=== PATIENT | female | born 1990 | race African-American/Black ===

== ENCOUNTER 2017-03-11 16:36 | Emergency (ER) | payer OTHER ==
[~2017-03-11] VITALS: Ht 160 cm; Wt 81.2 kg
--- NOTE | 2017-03-11 17:04 | Emergency Room Report ---
History of Present Illness General Chief Complaint: Chest Pain Source: Patient Present Illness HPI The patient is a 26-year-old female who denies any medical history presenting for chest pain. The patient states that she developed these symptoms for months prior and went to an urgent care and was diagnosed with pleuritis but no imaging , EKG, or blood work was done. She was given a prescription which she does not remember but she states she did not take them as directed. The pt now states she experiences intermittent 8/10 dull pain the upper chest on both sides. Pain occurs randomly and for no known reason. Pain does not radiate. No known relieving factors. Pt denies recent illness. She denies any other symptoms including N, V, F, chills, cough, SOB, palpitations, numbness/tingling, arm pain , abd pain, JOHNSON, dizziness Allergies: Coded Allergies: No Known Allergies (Unverified , 03/11/17) Patient History Past Medical History: see triage record Pertinent Family History: none Reviewed Nursing Documentation: PMH: Agreed, PSxH: Agreed Nursing Documentation-PMH Past Medical History: No Stated History Review of Systems All Other Systems: negative except mentioned in HPI Physical Exam Vital Signs Date Time Temp Pulse Resp B/P Pulse Ox O2 Delivery O2 Flow Rate FiO2 03/11/17 16:39 98.4 93 20 105/69 100 Room Air Sp02 EP Interpretation: reviewed, normal General Appearance: no apparent distress, alert, GCS 15, non-toxic Head: normocephalic, atraumatic Eyes: bilateral eye PERRL, bilateral eye normal inspection ENT: hearing grossly normal, normal pharynx, no angioedema, normal voice Neck: full range of motion, supple/symm/no masses Respiratory: chest non-tender, lungs clear, normal breath sounds, no respiratory distress, no accessory muscle use, no wheezing, speaking full sentences Cardiovascular #1: regular rate, rhythm, no edema, no murmur, no rub Gastrointestinal: normal bowel sounds, non tender, soft, non-distended, no guarding, no rebound Musculoskeletal: back normal, gait/station normal, normal range of motion, non- tender Neurologic: alert, oriented x3, responsive, motor strength/tone normal, sensory intact, speech normal Psychiatric: judgement/insight normal, memory normal, mood/affect normal, no suicidal/homicidal ideation Skin: normal color, no rash, warm/dry, well hydrated Lymphatic: no adenopathy Medical Decision Making PA Attestation Dr. Limon is my supervising physician. Patient management was discussed with my supervising physician Diagnostic Impression: Primary Impression: Chest pain Qualified Codes: R07.9 - Chest pain, unspecified ER Course The patient is a 26-year-old female who denies any medical history presenting for chest pain Differential diagnosis include but not limited to ACS, pericarditis, pleuritis, PE, pneumonia, gastritis PE:vitals WNL. NAD RRR. No MRG. Lungs CTA bilat. Chest non tender. EKG unremarkable. No ST elevation CXR unremarkable. The patient will be discharged home with a prescription for Motrin and will follow up with PMD. ER precautions are given Laboratory Tests Test 03/11/17 17:03 Urine HCG, Qualitative Negative Lab Results Impression Preg: neg EKG Diagnostic Results EP Interpretation: NSR Rate: tachycardiac - 96 Rhythm: NSR ST Segments: no acute changes ASA given to the pt in ED: No PA Scribe Text EKG was reviewed and read with my supervising physician. No acute ST segment changes are seen. Normal rhythm. No acute changes. Chest X-Ray Diagnostic Results EP Interpretation: Yes Findings: no consolidation, no effusion, no pneumothorax Number of Views: 1 PA Scribe Text I am acting as scribe for my supervising physician. My supervising physician's interpretation of the chest xrays are there is no consolidation, no effusion, no acute cardiopulmonary disease, no pneumothorax Last Vital Signs Date Time Temp Pulse Resp B/P Pulse Ox O2 Delivery O2 Flow Rate FiO2 03/11/17 16:58 16 Room Air 03/11/17 16:39 98.4 93 105/69 100 Status: improved Disposition: HOME, SELF-CARE Condition: Improved Scripts Ibuprofen* (MOTRIN*) 600 Mg Tablet 600 MG ORAL Q8H Y for For Pain, #30 TAB 0 Refills Prov: PRABHJOT MAR 03/11/17 PRABHJOT MAR Mar 11, 2017 17:04
[2017-03-11] MEDS ORDERED: IBUPROFEN600 MG ORAL (17:39)
[2017-03-11 17:53] VITALS: BP 108/72
[2017-03-11 17:54] VITALS: BP 105/69
--- NOTE | 2017-03-12 09:33 | Diagnostic Imaging Report ---
Indication: PAIN Technique: One view of the chest Comparison: none Findings: Lungs and pleural spaces are clear. Heart size is normal. Impression: No acute process
== END 2017-03-11 17:55 | disposition home or self-care (01) ==
LOC: EMR 17:10
DX: R07.9 Chest pain, unspecified (principal)
CPT/HCPCS: 71010; 81025; 93005; 99283

== ENCOUNTER 2017-11-04 05:59 | Emergency (ER) | payer OTHER ==
[~2017-11-04] VITALS: Ht 160 cm; Wt 85.7 kg
[~2017-11-04 05:59] MED LIST: IBUPROFEN600 MG ORAL
[2017-11-04 06:29] VITALS: BP 104/73
--- NOTE | 2017-11-04 06:43 | Emergency Room Report ---
History of Present Illness General Chief Complaint: Allergic Reaction Source: Patient Present Illness HPI 27-year-old female, history of allergies however does not know to what. Presents with hives, shortness of breath, nausea and vomiting. Patient states that this occurred at 1 AM, very itchy, rash on arms legs and abdomen. Slight shortness of breath. No tongue lip or throat swelling. One episode of vomiting no diarrhea Allergies: Coded Allergies: No Known Allergies (Unverified , 03/11/17) Patient History Past Medical History: see triage record Past Surgical History: none Pertinent Family History: none Last Menstrual Period: 05/2017 Reviewed Nursing Documentation: PMH: Agreed, PSxH: Agreed Nursing Documentation-PMH Past Medical History: No Stated History Review of Systems All Other Systems: negative except mentioned in HPI Physical Exam Vital Signs Date Time Temp Pulse Resp B/P (MAP) Pulse Ox O2 Delivery O2 Flow Rate FiO2 11/04/17 06:00 99.3 140 20 97/64 96 Room Air Sp02 EP Interpretation: reviewed, normal General Appearance: alert, GCS 15, non-toxic, mild distress Head: normocephalic, atraumatic Eyes: bilateral eye normal inspection, bilateral eye PERRL, bilateral eye EOMI ENT: normal ENT inspection, normal pharynx, no angioedema, normal voice, moist mucus membranes Neck: normal inspection, full range of motion, supple Respiratory: normal inspection, lungs clear, normal breath sounds, no respiratory distress, no retraction, no wheezing, speaking full sentences, chest symmetrical Cardiovascular #1: no edema, normal capillary refill, tachycardia Cardiovascular #2: 2+ radial (R), 2+ radial (L) Gastrointestinal: normal inspection, non tender, soft, non-distended, no guarding Musculoskeletal: normal inspection, back normal, normal range of motion, non- tender Neurologic: normal inspection, alert, oriented x3, responsive, motor strength/ tone normal, sensory intact, normal gait, speech normal Psychiatric: normal inspection, judgement/insight normal, memory normal Skin: warm/dry, well hydrated, normal turgor, other - diffuse urticarial rash noted on arms abdomen and legs blanching nontender Medical Decision Making ER Course 27-year-old female with allergic reaction Differential diagnosis Anaphylaxis Plan: Benadryl already taken by patient 50 mg, pepcid, steroids Epinephrine, fluids ER course: The patient continues to be a monitor, patent airway, not hypoxic, no wheezing Signed out patient to Dr. Jiménez 27-year-old female with anaphylaxis, given Ep, Pepcid, steroids, fluids Pending resolution of symptoms Last Vital Signs Date Time Temp Pulse Resp B/P (MAP) Pulse Ox O2 Delivery O2 Flow Rate FiO2 11/04/17 06:29 99.3 102 17 104/73 98 Room Air Referrals: [facility],REFERRING (PCP) Jose Francisco Latham M.D. Nov 04, 2017 06:43
[2017-11-04] MEDS: Solu-MEDROL 125mg Inj IVP ONE (06:53)
[2017-11-04] MEDS: EPINEPHrine 1mg/1ml Amp IM ONE (06:53)
[2017-11-04 07:16] LABS: KETONES,URINE NEGATIVE (NEGATIVE); LEUKOCYTE ESTERASE ,URINE 2+ (NEGATIVE); NITRITE,URINE NEGATIVE (NEGATIVE); PH,URINE 6 (4.5-8.0); PROTEIN,URINE 2+ (NEGATIVE); UROBILINOGEN,URINE NORMAL MG/DL (0.0-1.0)
[2017-11-04 07:20] LABS: BASOPHILS % (AUTO) 0.4 % (0.0-2.0); LYMPHOCYTES % (AUTO) 13.5 % (20.0-45.0); MEAN CORPUSCULAR HEMOGLOBIN 30.4 PG (27.0-31.0); MEAN CORPUSCULAR HGB CONC 34.6 G/DL (32.0-36.0); MEAN CORPUSCULAR VOLUME 88 FL (80-99); MEAN PLATELET VOLUME 9.5 FL (6.5-10.1); MONOCYTES % (AUTO) 4.3 % (1.0-10.0); NEUTROPHILS % (AUTO) 81.7 % (45.0-75.0); PLATELET COUNT 275 K/UL (150-450); RED BLOOD COUNT 5.04 M/UL (4.20-5.40); RED CELL DISTRIBUTION WIDTH 11.4 % (11.6-14.8); WHITE BLOOD COUNT 12.2 K/UL (4.8-10.8)
[2017-11-04 07:22] LABS: APPEARANCE,URINE SLIGHTLY CLOUDY
[2017-11-04 07:29] LABS: ANION GAP 9 mmol/L (5-15); CARBON DIOXIDE 25 MMOL/L (21-32); CHLORIDE 102 MMOL/L (98-107); CREATININE 0.9 MG/DL (0.55-1.30); GLOMERULAR FILTRATION RATE > 60 mL/min (>60); POTASSIUM 3.7 MMOL/L (3.5-5.1); SODIUM 136 MMOL/L (136-145)
[2017-11-04 07:33] LABS: ALANINE AMINOTRANSFERASE 38 U/L (12-78); ALBUMIN/GLOBULIN RATIO 1.1 (1.0-2.7); ASPARTATE AMINO TRANSFERASE 23 U/L (15-37); TOTAL PROTEIN 7.3 G/DL (6.4-8.2)
[2017-11-04] MEDS ORDERED: EPIPEN 2-P0.3 MG/0.3 IM (07:45)
[2017-11-04] MEDS ORDERED: PREDNISONE20 MG ORAL (07:45)
[2017-11-04 07:46] LABS: BACTERIA,URINE FEW /HPF; MUCUS,URINE FEW /LPF (NONE/OCC); SQUAMOUS EPITHELIAL CELL,UR MANY /LPF (NONE/OCC)
[2017-11-04 07:50] VITALS: BP 104/65
== END 2017-11-04 07:50 | disposition home or self-care (01) ==
LOC: EMR 06:10
DX: L50.0 Allergic urticaria (principal)
CPT/HCPCS: 36415; 80053; 81003; 81025; 85025; 96361; 96372; 96374; 96375; 99284; J0171; J2930; S0028

== ENCOUNTER 2021-01-16 23:45 | Emergency (ER) | payer OTHER ==
[~2021-01-16] VITALS: Ht 160 cm; Wt 90.7 kg
[~2021-01-16 23:45] MED LIST changes: +EPIPEN 2-P0.3 MG/0.3 IM; +PREDNISONE20 MG ORAL
--- NOTE | 2021-01-17 00:09 | NUR ---
pt aox3. in tx rm 3. pt c/o right shoulder pain started 8am yesterday. states she took ibuprofen with no relief. denies any injury. no deformities noted to site. v/ss table. pt in no distress. will continue to monitor pt.
--- NOTE | 2021-01-17 00:19 | Emergency Room Report ---
History of Present Illness General Chief Complaint: Pain Source: Patient Present Illness HPI This is a 30-year-old female with no past medical history. She is right-hand dominant. She presents with chief plaint of right shoulder pain. She woke up this morning with right shoulder pain. When she is holding still it does not hurt. When she move her arm especially with abduction pain is reproducible. No chest pain. No diaphoresis. No exertional component. No anesthesia or weakness. Pain is 8 out of 10. Worse with movement. Better with rest. Allergies: Coded Allergies: No Known Allergies (Unverified , 03/11/17) COVID-19 Screening Contact w/high risk pt: No Experienced COVID-19 symptoms?: No COVID-19 Testing performed WEIGHER AND CRUSHER: Yes COVID-19 Screening: Negative COVID-19 COVID-19 Testing Source: november 2020 Patient History Past Medical History: see triage record, old chart reviewed Past Surgical History: none Pertinent Family History: none Last Menstrual Period: currently on it Now: No Immunizations: other Reviewed Nursing Documentation: PMH: Agreed; PSxH: Agreed Nursing Documentation-PMH Past Medical History: No Stated History Review of Systems Eye: Denies: eye pain, blurred vision ENT: Denies: ear pain, nose congestion, throat swelling Respiratory: Denies: cough, shortness of breath Cardiovascular: Denies: chest pain, palpitations Gastrointestinal: Denies: abdominal pain, diarrhea, nausea, vomiting Musculoskeletal: Reports: joint pain; Denies: back pain Skin: Denies: rash Neurological: Denies: headache, numbness Endocrine: Denies: increased thirst, increased urine Hematologic/Lymphatic: Denies: easy bruising All Other Systems: negative except mentioned in HPI Physical Exam Vital Signs Date Time Temp Pulse Resp B/P (MAP) Pulse Ox O2 Delivery O2 Flow Rate FiO2 01/17/21 00:00 98.2 71 18 112/58 (76) 99 Room Air Vitals normal Sp02 EP Interpretation: reviewed, normal General Appearance: well appearing, no apparent distress, alert Head: normocephalic, atraumatic Eyes: bilateral eye PERRL, bilateral eye EOMI ENT: hearing grossly normal, normal pharynx Neck: full range of motion, supple, no meningismus Respiratory: chest non-tender, lungs clear, normal breath sounds Cardiovascular #1: regular rate, rhythm, no murmur Gastrointestinal: normal bowel sounds, non tender, no mass, no organomegaly, no bruit, non-distended Musculoskeletal: back normal, normal range of motion, gait/station normal, other - Right shoulder: Tenderness with palpation anteriorly and with range of motion. Full range of motion however. Sensation normal. Psychiatric: mood/affect normal Medical Decision Making Diagnostic Impression: Primary Impression: Strain of shoulder, right Qualified Codes: S46.911A - Strain of unspecified muscle, fascia and tendon at shoulder and upper arm level, right arm, initial encounter ER Course This patient presents with right shoulder pain. Pain is reproducible and started when she woke up. She probably slept on it in the wrong position. This is most likely a musculoskeletal issue because reproducible and worse with movement. She has no other risk factor for PE, dissection, ACS to name a few. I see no mass or pneumothorax on the x-ray. Other X-Ray Diagnostic Results Other X-Ray Diagnostic Results : X-Ray ordered: Right shoulder x-rays # of Views/Limited Vs Complete: 4 View Indication: Pain EP Interpretation: Yes Interpretation: no dislocation, no soft tissue swelling, no fractures Impression: No acute disease Electronically Signed by: Horacio Joyner MD Last Vital Signs Date Time Temp Pulse Resp B/P (MAP) Pulse Ox O2 Delivery O2 Flow Rate FiO2 01/17/21 00:00 98.2 71 18 112/58 (76) 99 Room Air Status: improved Disposition: HOME, SELF-CARE Condition: Stable Scripts Prednisone* (PREDNISONE*) 20 Mg Tablet 20 MG ORAL DAILY, #5 TAB Prov: Horacio Joyner MD 01/17/21 Additional Instructions: Continue with ibuprofen. Take 600 mg every 6 hours as needed for pain. Follow- up with your doctor in 1 to 2 weeks. If continue with pain, may need an MRI or a cortisone injection. Return if worse. Horacio Joyner MD Jan 17, 2021 00:19
--- NOTE | 2021-01-17 00:20 | NUR ---
xray at bedside.
[2021-01-17] MEDS ORDERED: Ketorolac 60mg Inj IM ONE (00:30)
--- NOTE | 2021-01-17 00:31 | NUR ---
pt medicated per jan. v/s stable. pt in no distress
[2021-01-17] MEDS ORDERED: PREDNISONE20 MG ORAL (00:40)
--- NOTE | 2021-01-17 00:50 | NUR ---
pt placed in arm sling. given instructions on proper use. pt given and understands dishcarge instructions. v/s stable. pt in no distress. ambulatory out w steady gait
[2021-01-17 00:53] VITALS: BP 122/78
--- NOTE | 2021-01-17 09:49 | Diagnostic Imaging Report ---
EXAM: X-RAY XRAY Shoulder Compl R CLINICAL HISTORY: Shoulder pain. COMPARISON: None FINDINGS: Total of 3 views of the right shoulder were obtained. Alignment is anatomic. There is no fracture, bony lesions or erosions. Joint spaces are unremarkable. Surrounding soft tissue is normal. IMPRESSION: NO ACUTE BONY ABNORMALITY.
== END 2021-01-17 00:54 | disposition home or self-care (01) ==
LOC: EMR 01-17 00:22
DX: S46.911A Strain of unspecified muscle, fascia and tendon at shoulder and upper arm level, right arm, initial encounter (principal); X58.XXXA Exposure to other specified factors, initial encounter; Y93.9 Activity, unspecified; Y92.9 Unspecified place or not applicable
CPT/HCPCS: 96372; 99283